=== PATIENT | female | born 1990 | race Asian ===

== ENCOUNTER 2018-03-30 21:40 | Emergency (ER) | payer OTHER ==
[2018-03-30] MEDS: NORCO, ANEXSIA 5/325MG TABLET (HYDROcodone/ACETAMINOPHEN) PO (22:17)
== END 2018-03-30 22:50 | disposition home or self-care (01) ==
LOC: M ED 22:50
DX: S60.022A Contusion of left index finger without damage to nail, initial encounter (principal); S60.032A Contusion of left middle finger without damage to nail, initial encounter; W23.0XXA Caught, crushed, jammed, or pinched between moving objects, initial encounter; Y92.099 Unspecified place in other non-institutional residence as the place of occurrence of the external cause; Y93.9 Activity, unspecified; Y99.9 Unspecified external cause status
CPT/HCPCS: 73140

== ENCOUNTER → 2018-07-17 | Outpatient (REF) | payer OTHER | LOC: M SFHCLERA 20:35 | DX: J02.9 Acute pharyngitis, unspecified (principal) ==

== ENCOUNTER 2018-07-19 14:43 | Emergency (ER) | payer OTHER ==
[2018-07-19] MEDS: IBUPROFEN 800 MG TAB PO (16:04)
[2018-07-19 16:14] LABS: CONTROL LINE MONO INT CTR LINE PRESENT; MONO SCRN NEGATIVE (NEGATIVE)
== END 2018-07-19 16:52 | disposition home or self-care (01) ==
LOC: M ED 14:43
DX: J02.8 Acute pharyngitis due to other specified organisms (principal)
CPT/HCPCS: 86308

== ENCOUNTER → 2019-07-13 | Outpatient (REF) | payer OTHER ==
[~2019-07-13] MED LIST: IBUP-1022 PO; NEXP1IMP SC
== END ==
LOC: M LAB REF 13:11
PROVIDERS: ATTEND Family Medicine
DX: J02.0 Streptococcal pharyngitis (principal)

== ENCOUNTER → 2019-07-27 | Outpatient (REF) | payer OTHER | LOC: M LAB REF 13:19 | PROVIDERS: ATTEND Family Medicine | DX: J02.0 Streptococcal pharyngitis (principal) ==

== ENCOUNTER → 2019-08-13 | Outpatient (REF) | payer OTHER | LOC: M LAB REF 13:13 | PROVIDERS: ATTEND Physician Assistant Medical | DX: J35.01 Chronic tonsillitis (principal) ==

== ENCOUNTER → 2019-10-02 | Outpatient (REF) | payer OTHER | LOC: M LAB REF 13:28 | PROVIDERS: ATTEND Nurse Practitioner Family | DX: J02.9 Acute pharyngitis, unspecified (principal) ==

== ENCOUNTER → 2019-11-14 | Outpatient (REF) | payer OTHER | LOC: M SFHCLERA 11:39 | PROVIDERS: ATTEND Physician Assistant | DX: R30.0 Dysuria (principal) | CPT/HCPCS: 81002; 81025; 87088; 87186; G0463 ==